=== PATIENT | male | born 1975 ===

== ENCOUNTER 2020-09-26 20:12 | Emergency (ER) | payer OTHER ==
[~2020-09-26] VITALS: Ht 170.2 cm; Wt 110.8 kg
[2020-09-26] MEDS ORDERED: FAMOTIDINE 20 MG TABLET ONE (20:38)
[2020-09-26] MEDS ORDERED: EPINEPHRINE 1 MG/ML, 1ML ONE (20:38)
--- NOTE | 2020-09-26 20:55 | NUR ---
BEDSIDE REPORT FROM [facility] OF CARE AT THIS TIME, PREVIOUS RN MEDICATED PT PRIOR TO CARE TRANSFER.
[2020-09-26] MEDS ORDERED: FAMOTIDINE 20 MG TABLET PO ONE (21:00)
[2020-09-26] MEDS ORDERED: EPINEPHRINE 1 MG/ML, 1ML IM ONE (21:00)
[2020-09-26 21:17] VITALS: BP 153/53
--- NOTE | 2020-09-26 21:18 | NUR ---
Patient given discharge instructions and they have confirmed that they understand the instructions. Patient ambulatory with steady gait.
== END 2020-09-26 21:19 | disposition home or self-care (01) ==
LOC: ED 21:00
DX: T78.02XA Anaphylactic reaction due to shellfish (crustaceans), initial encounter (principal); M79.89 Other specified soft tissue disorders; X58.XXXA Exposure to other specified factors, initial encounter
CPT/HCPCS: 96372; 99283; J0171; J7512